=== PATIENT | male | born 1965 | race Caucasian/White ===

== ENCOUNTER 2017-01-07 11:38 | Emergency (ER) | payer SELFPAY ==
[~2017-01-07 11:38] MED LIST: *DENIES
== END 2017-01-07 16:34 | disposition home or self-care (01) ==
LOC: ER 11:38
DX: S39.012A Strain of muscle, fascia and tendon of lower back, initial encounter (principal); X58.XXXA Exposure to other specified factors, initial encounter; Y93.H1 Activity, digging, shoveling and raking
CPT/HCPCS: 72100; 96372; 99283; J1170; J2550